=== PATIENT | female | born 1995 | race Caucasian/White ===

== ENCOUNTER → 2016-12-19 | Outpatient (CLI) | payer OTHER ==
--- NOTE | 2016-12-19 22:14 | XR ---
EXAMINATION TYPE: XR chest 2V DATE OF EXAM: 12/19/2016 COMPARISON: None HISTORY: 21-year-old female back spasms TECHNIQUE: Frontal and lateral views FINDINGS: The cardiomediastinal silhouette, aorta, and pulmonary vasculature are within normal limits. Lungs an d pleural spaces are clear. Cholecystectomy clips. IMPRESSION: No acute cardiopulmonary process.
== END | disposition home or self-care (01) ==
LOC: LABMAIN 09:20
PROVIDERS: ATTEND Family Medicine
DX: M62.830 Muscle spasm of back (principal)
CPT/HCPCS: 71020

== ENCOUNTER 2018-10-29 12:29 | Emergency (ER) | payer OTHER ==
[2018-10-29 12:40] VITALS: TEMP 98
[2018-10-29] MEDS ORDERED: methylPREDNISolone SOD SUCCI 125 MG/2 ML VIAL IM ONE (12:59)
[2018-10-29] MEDS ORDERED: diphenhydrAMINE 50 MG CAP PO STA (12:59)
[2018-10-29] MEDS ORDERED: FAMOTIDINE 20 MG TAB PO STA (12:59)
--- NOTE | 2018-10-29 13:46 | ED ---
Allergic Reaction HPI - General Chief complaint: Allergic Reaction Stated complaint: poss allergic reaction Time Seen by Provider: 10/29/18 12:53 Source: patient, RN notes reviewed, old records reviewed Mode of arrival: ambulatory Limitations: no limitations - History of Present Illness Initial Comments: Patient is a 23 year old female presents today with complaints of allergic reaction to bee sting. Patient was stung on left thigh. States she started to fell like she was breathing hard and felt like she was having her eileen swell.She hasn't taken benadryl yet. Patient has no history of anaphylaxis to bees. - Related Data Home Medications Medication Instructions Recorded Confirmed L.acidoph/B.long/L.plant/B.lac 2 each PO DAILY 10/27/13 10/27/13 [Probiotic Acidophilus Beads] Omeprazole [PriLOSEC] 20 mg PO AC-BID 10/27/13 10/27/13 Previous Rx's Medication Instructions Recorded Ibuprofen [Motrin] 600 mg PO Q6HR PRN #20 tab 10/27/13 Famotidine [Pepcid] 20 mg PO BID #10 tablet 10/29/18 diphenhydrAMINE [Benadryl] 25 mg PO QID PRN #20 capsule 10/29/18 predniSONE 20 mg PO BID #10 tab 10/29/18 Allergies Allergy/AdvReac Type Severity Reaction Status Date / Time No Known Allergies Allergy Verified 10/27/13 17:25 Review of Systems ROS Statement: Those systems with pertinent positive or pertinent negative responses have been documented in the HPI. ROS Other: All systems not noted in ROS Statement are negative. Past Medical History Additional Past Medical History / Comment(s): cyst on kidney History of Any Multi-Drug Resistant Organisms: None Reported Past Surgical History: Cholecystectomy, Orthopedic Surgery Additional Past Surgical History / Comment(s): kidney reflux surgery as child, ACL repair Past Psychological History: No Psychological Hx Reported Smoking Status: Never smoker Past Alcohol Use History: Occasional Past Drug Use History: None Reported General Exam - General Exam Comments Initial Comments: 23 year old female, no distress. Limitations: no limitations General appearance: alert, in no apparent distress Head exam: Present: atraumatic, normocephalic, normal inspection Eye exam: Present: normal appearance, PERRL, EOMI. Absent: scleral icterus, conjunctival injection, periorbital swelling ENT exam: Present: normal exam, mucous membranes moist Neck exam: Present: normal inspection. Absent: tenderness, meningismus, lymphadenopathy Respiratory exam: Present: normal lung sounds bilaterally. Absent: respiratory distress, wheezes, rales, rhonchi, stridor Cardiovascular Exam: Present: regular rate, normal rhythm, normal heart sounds. Absent: systolic murmur, diastolic murmur, rubs, gallop, clicks GI/Abdominal exam: Present: soft, normal bowel sounds. Absent: distended, tenderness, guarding, rebound, rigid Extremities exam: Present: normal inspection, full ROM, normal capillary refill, other (large wheel over left thigh. No stinger noted. ). Absent: tenderness, pedal edema, joint swelling, calf tenderness Neurological exam: Present: alert, oriented X3, CN II-XII intact Psychiatric exam: Present: normal affect, normal mood Skin exam: Present: warm, dry, intact, normal color. Absent: rash Course Vital Signs 10/29/18 10/29/18 10/29/18 12:36 12:49 13:49 Temperature 98 F Pulse Rate 64 69 Respiratory 18 16 14 Rate Blood Pressure 123/74 119/81 O2 Sat by Pulse 100 100 Oximetry Medical Decision Making - Medical Decision Making Patient is a 23 year old female presents today for evaluation for allergic reaction. Patient was stung by bee on left thigh. She has no signs of anaphylaxis. Patient given IM solumdedrol, benadryl and pepcid. She feels better on recheck. Discussed patient is to follow up with PCP and return to ED. Will DC with short course for steroids and pepcid. Discussed close follow up. Disposition Clinical Impression: Bee sting Disposition: HOME SELF-CARE Condition: Good Instructions (If sedation given, give patient instructions): General Allergic Reaction (ED) Additional Instructions: Patient advised to follow-up with primary care provider. Return to the emergency department if any alarming signs or symptoms occur. Patient has a take the medication as prescribed, but only take the medication for 3 days. Save other medication if there is any other bee stings. Apply cool compresses over the bee sting. Prescriptions: diphenhydrAMINE [Benadryl] 25 mg PO QID PRN #20 capsule PRN Reason: Itching Famotidine [Pepcid] 20 mg PO BID #10 tablet predniSONE 20 mg PO BID #10 tab Is patient prescribed a controlled substance at d/c from ED?: No Referrals: Lianet Butler MD [Primary Care Provider] - 1-2 days Time of Disposition: 13:43
[2018-10-29 13:55] VITALS: BP 119/81; PULSE 69; RESP 14
== END 2018-10-29 13:49 | disposition home or self-care (01) ==
LOC: EC 12:29
DX: T63.441A Toxic effect of venom of bees, accidental (unintentional), initial encounter (principal); Z79.899 Other long term (current) drug therapy
CPT/HCPCS: 99283; 96372; J2930

== ENCOUNTER 2020-10-11 06:20 | Day surgery (SDC) | payer OTHER ==
[2020-10-08 15:19] VITALS: BMI 23.9
[~2020-10-11 06:20] MED LIST: Pre Op ABX Message 1 EACH MISC MISCELLANE ONE
--- NOTE | 2020-10-11 06:58 | P.HPOB ---
History of Present Illness H&P Date: 10/11/20 Chief Complaint: pelvic pain 25 year old G0 presents for diagnostic laparoscopy for continued pelvic pain. Review of Systems All systems: negative Constitutional: Denies chills, Denies fever Eyes: denies blurred vision, denies pain Ears, nose, mouth and throat: Denies headache, Denies sore throat Cardiovascular: Denies chest pain, Denies shortness of breath Respiratory: Denies cough Gastrointestinal: Denies abdominal pain, Denies diarrhea, Denies nausea, Denies vomiting Genitourinary: Denies dysuria, Denies hematuria Musculoskeletal: Denies myalgias Integumentary: Denies pruritus, Denies rash Neurological: Denies numbness, Denies weakness Psychiatric: Denies anxiety, Denies depression Endocrine: Denies fatigue, Denies weight change Past Medical History Additional Past Medical History / Comment(s): cyst on kidney. HAS HAD ABD PAIN/NAUSEA FOR PAST 9 YEARS History of Any Multi-Drug Resistant Organisms: None Reported Past Surgical History: Cholecystectomy, Orthopedic Surgery Additional Past Surgical History / Comment(s): kidney reflux surgery as child,. RT ACL repair. EGD Past Anesthesia/Blood Transfusion Reactions: No Reported Reaction Smoking Status: Never smoker - Past Family History Mother Family Medical History: No Reported History Medications and Allergies Home Medications Medication Instructions Recorded Confirmed Type Cholecalciferol [Vitamin D3 (25 25 mcg PO DAILY 10/08/20 10/11/20 History Mcg = 1000 Iu)] Escitalopram [Lexapro] 10 mg PO DAILY 10/08/20 10/11/20 History Medroxyprogesterone Acetate 150 mg IM Q90D 10/08/20 10/11/20 History [Depo-Provera] Vitamin B Complex 1 each PO DAILY 10/08/20 10/11/20 History Allergies Allergy/AdvReac Type Severity Reaction Status Date / Time bee venom protein (honey bee) Allergy Anaphylaxis Verified 10/08/20 15:09 Milk Containing Products Allergy Diarrhea Verified 10/08/20 15:09 [Dairy] Exam Osteopathic Statement: *. No significant issues noted on an osteopathic structural exam other than those noted in the History and Physical/Consult. Vital Signs Temp Pulse Resp BP Pulse Ox 10/11/20 06:55 98.3 F 75 16 116/65 100 Intake and Output 10/10/20 10/10/20 10/11/20 14:59 22:59 06:59 Other: Weight 59.9 kg Heart: Regular rate and rhythm Lungs: Clear to auscultation bilaterally Abdomen: Soft, nontender Extremities: Negative Homans sign Assessment and Plan (1) Pelvic pain Current Visit: Yes Status: Acute Code(s): R10.2 - PELVIC AND PERINEAL PAIN SNOMED Code(s): 98344619 Plan: 1. Diagnostic laparoscopy with possible cauterization of endometriosis
[2020-10-11] MEDS ORDERED: LACTATED RINGERS 1,000 ML IV ONE ×3 (07:03→08:01)
[2020-10-11] MEDS ORDERED: LIDOCAINE 1% (10MG/ML) FOR IV START INTRADERMA ONE (07:04)
[2020-10-11] MEDS ORDERED: ONDANSETRON 4 MG/2 ML VIAL ONE (07:08)
[2020-10-11] MEDS ORDERED: DEXAMETHASONE SOD PHOSPHATE 4 MG/ML 1 ML VIAL IVP ONE (07:09)
[2020-10-11] MEDS ORDERED: ONDANSETRON 4 MG/2 ML VIAL IVP ONE (07:10)
[2020-10-11] MEDS ORDERED: SUCCINYLCHOLINE CHLORIDE 100 MG/5 ML SYR IV ONE (07:32)
[2020-10-11] MEDS ORDERED: fentaNYL (PF) 50 MCG/ML 2 ML AMP ONE (07:32)
[2020-10-11] MEDS ORDERED: MIDAZOLAM 2 MG/2 ML VIAL ONE (07:32)
[2020-10-11] MEDS ORDERED: PROPOFOL 10 MG/ML 20 ML VIAL IV ONE (07:32)
[2020-10-11] MEDS ORDERED: KETOROLAC 15 MG/ML 1 ML VIAL ONE (07:32)
[2020-10-11] MEDS ORDERED: BUPIVACAINE (PF) 0.25% 30 ML VIAL SQ ONE ×2 (08:01)
[2020-10-11] MEDS ORDERED: diphenhydrAMINE 50 MG/ML 1 ML VIAL ONE (08:41)
[2020-10-11] MEDS ORDERED: diphenhydrAMINE 50 MG/ML 1 ML VIAL IVP ONE (08:43)
[2020-10-11 08:47] VITALS: TEMP 97.9
--- NOTE | 2020-10-11 08:50 | P.OP ---
Date of Procedure: 10/11/20 Preoperative Diagnosis: 1. pelvic pain Postoperative Diagnosis: 1. pelvic pain 2. endometriosis Procedure(s) Performed: Diagnostic laparoscopy with cauterization of endometriosis Anesthesia: MICHELE Surgeon: Kely Godwin Estimated Blood Loss (ml): 5 IV fluids (ml): 500 Urine output (ml): 10 Pathology: none sent Condition: stable Disposition: PACU Operative Findings: Powder burn endometriosis in the posterior cul-de-sac and the ovarian fossa bilaterally. Normal tubes and ovaries. Description of Procedure: Patient is taken the operating room and general anesthesia was obtained without difficulty. She is prepped and draped in normal sterile fashion dorsal lithotomy position, legs placed in candycane stirrups. Willis speculum was placed in the vagina the anterior lip the cervix was grasped with single-tooth tenaculum. With some difficulty the sound was passed through the cervix and the uterus sounded to 9 cm. The acorn manipulator was placed. Attention then turned to the abdomen and gloves were changed. A 10 mm infraumbilical incision was made the scalpel 10 mm optical trocar was placed under direct visualization. 5 mm suprapubic incision was made with scalpel 5 mm trochars placed under direct visualization. Survey of the pelvis revealed a normal bladder normal appearing uterus, normal fallopian tubes and ovaries. We lifted the uterus behind the uterus and the posterior cul-de-sac there were several areas of powder burn coreas from endometriosis. There was a spot also in the ovarian fossa on the left. These areas were burned with the spatula. All instruments were removed from the abdomen and vagina. The 10 mm infraumbilical incision was closed with 0 Vicryl and the fascial layer and then 4-0 Vicryl subcuticular fashion. The 5 mm incision was closed with 4-0 Vicryl in a subcuticular fashion. Patient procedure well, sponge and instrument counts correct 2. She was taken to recovery in stable condition.
[2020-10-11] MEDS ORDERED: HYDROmorphone 0.5 MG/0.5 ML SYRINGE IVP ONE (09:16)
[2020-10-11 09:34] VITALS: RESP 18
[2020-10-11 10:06] VITALS: BP 137/72; PULSE 99
== END 2020-10-11 10:25 | disposition home or self-care (01) ==
LOC: OR 06:20
PROVIDERS: ATTEND Obstetrics & Gynecology
DX: N80.9 Endometriosis, unspecified (principal); N18.2 Chronic kidney disease, stage 2 (mild); F41.8 Other specified anxiety disorders; Z79.3 Long term (current) use of hormonal contraceptives; Z90.49 Acquired absence of other specified parts of digestive tract; Z91.011 Allergy to milk products
CPT/HCPCS: 58662; 81025; J2250; J1200; J1100; J2405; J3010; J1885; J0330; J2704; J1170

== ENCOUNTER → 2023-11-17 | Outpatient (CLI) | payer OTHER ==
[2023-11-17 10:35] LABS: Basophils # (A) 0.01 X 10*3/uL (0.00-0.10); Basophils % (A) 0.2 %; Eosinophils # (A) 0.03 X 10*3/uL (0.04-0.35); Eosinophils % (A) 0.7 %; HCT 41.7 % (37.2-46.3); HGB 14.2 g/dL (12.0-15.0); Lymphocytes # (A) 1.77 X 10*3/uL (0.90-5.00); Lymphocytes % (A) 43.1 %; MCH 29.8 pg (27.0-32.0); MCHC 34.1 g/dL (32.0-37.0); MCV 87.4 FL (80.0-97.0); Mean Platelet Volume 10.7 FL (9.5-12.2); Monocytes # (A) 0.36 X 10*3/uL (0.20-1.00); Monocytes % (A) 8.8 %; NRBC Per 100 WBC 0 X 10*3/uL (0.00-0.01); Neutrophils # (A) 1.93 X 10*3/uL (1.80-7.70); Platelet Count 244 X 10*3/uL (140-440); RBC 4.77 X 10*6/uL (4.10-5.20); RDW 11.7 % (11.5-14.5); WBC 4.11 X 10*3/uL (4.50-10.00)
[2023-11-17 10:56] LABS: ALT 11 U/L (8-44); AST 16 U/L (13-35); Albumin 4.7 g/dL (3.8-4.9); Albumin/Globulin Ratio 1.81 Ratio (1.60-3.17); Alkaline Phosphatase 65 U/L (41-126); Blood Urea Nitrogen 12.3 mg/dL (9.0-27.0); Calcium 10.2 mg/dL (8.7-10.3); Carbon Dioxide 25.4 mmol/L (21.6-31.8); Chloride 106 mmol/L (96-109); Chol/HDL Ratio 2.89 Ratio; Globulin 2.6 g/dL (1.6-3.3); Glucose 85 mg/dL (70-110); Potassium 4.5 mmol/L (3.5-5.5); Sodium 142 mmol/L (135-145); T4, Free (Free Thyroxine) 1.36 ng/dL (0.80-1.80); Total Bilirubin 0.5 mg/dL (0.3-1.2); Total Protein 7.3 g/dL (6.2-8.2); VLDL Calculation 11.32 mg/dL (5.00-40.00)
== END | disposition home or self-care (01) ==
LOC: LABWHC1 07:02
PROVIDERS: ATTEND Family Medicine
DX: Z00.00 Encounter for general adult medical examination without abnormal findings (principal); E55.9 Vitamin D deficiency, unspecified
CPT/HCPCS: 36415; 80053; 80061; 82306; 84439; 84443; 85025

== ENCOUNTER 2024-01-26 12:09 | Day surgery (SDC) | payer MEDICAID, OTHER ==
[2024-01-25 08:24] VITALS: BMI 26.5
[~2024-01-26 12:09] MED LIST changes: +LACTATED RINGERS 1,000 ML IV SCH; -Pre Op ABX Message 1 EACH MISC MISCELLANE ONE
[2024-01-26] MEDS: IV FLUID CONTINUATION 1,000 ML IV ONE (13:19)
[2024-01-26 13:39] VITALS: TEMP 98
[2024-01-26] MEDS ORDERED: PROPOFOL 10 MG/ML 20 ML VIAL IV ONE (13:56)
--- NOTE | 2024-01-26 14:09 | P.PCN ---
Date of Procedure: 01/26/24 Procedure(s) Performed: BRIEF HISTORY: Patient is a 28-year-old pleasant white female scheduled for an elective colonoscopy as a part of evaluation of alternating diarrhea and constipation for the last 3 to 4 months duration associate with intermittent rectal bleeding. PROCEDURE PERFORMED: Colonoscopy. PREOPERATIVE DIAGNOSIS: Change in bowel habits. IV sedation per Anesthesia. PROCEDURE: After informed consent was obtained, the patient, was brought into the endoscopy unit. IV sedation was administered by Anesthesia under continuous monitoring. Digital rectal examination was normal. Initially the Olympus CF-160 flexible video colonoscope was then inserted in the rectum, gradually advanced into the cecum without any difficulty. Careful examination was performed as the scope was gradually being withdrawn. Ileocecal valve and the appendiceal orifice were visualized and appeared normal. Prep was excellent. Terminal ileum was intubated in 20 cm visualized and appeared normal. Mucosa of the cecum, ascending colon, transverse colon, descending colon, sigmoid colon, and rectum appeared normal. Retroflexion was performed in the rectum and no lesions were seen. The patient tolerated the procedure well. IMPRESSION: Normal-appearing colon from rectum to cecum no evidence of colorectal neoplasia. RECOMMENDATIONS: Findings of this examination were discussed with the patient as well as her family. She was advised to continue on fiber supplements and high-fiber diet. Follow-up in the office as needed..
[2024-01-26 14:42] VITALS: BP 118/72; PULSE 88; RESP 18
== END 2024-01-26 14:57 | disposition home or self-care (01) ==
LOC: ORWHC2ENDO 12:09
PROVIDERS: ATTEND Internal Medicine Gastroenterology
DX: R19.4 Change in bowel habit (principal); F32.A Depression, unspecified; F41.9 Anxiety disorder, unspecified; N28.1 Cyst of kidney, acquired; G40.89 Other seizures; Z91.030 Bee allergy status
CPT/HCPCS: 45378; 81025

== ENCOUNTER → 2024-08-25 | Outpatient (CLI) | payer MEDICAID | END | disposition home or self-care (01) | LOC: LABWHC1 07:20 | PROVIDERS: ATTEND Family Medicine | DX: Z53.9 Procedure and treatment not carried out, unspecified reason (principal) ==

== ENCOUNTER → 2024-09-09 | Outpatient (CLI) | payer MEDICAID | END | disposition home or self-care (01) | LOC: LABWHC1 08:06 | PROVIDERS: ATTEND Family Medicine | DX: R53.82 Chronic fatigue, unspecified (principal) | CPT/HCPCS: 36415; 86041; 86042; 86043; 86255 ==